=== PATIENT | female | born 1960 | race Caucasian/White ===

== ENCOUNTER → 2017-05-12 | Outpatient (CLI) | payer BC, OTHER | END | disposition home or self-care (01) | LOC: SHCH 12:29 | PROVIDERS: ATTEND Internal Medicine Cardiovascular Disease | DX: I31.3 Pericardial effusion (noninflammatory) (principal) | CPT/HCPCS: 93306 ==

== ENCOUNTER → 2022-09-29 | Outpatient (CLI) | payer OTHER | END | disposition home or self-care (01) | LOC: OIH 09:32 | PROVIDERS: ATTEND Internal Medicine Cardiovascular Disease | DX: Z13.6 Encounter for screening for cardiovascular disorders (principal) | CPT/HCPCS: 75571 ==

== ENCOUNTER 2024-06-25 17:42 | Emergency (ER) | payer BC, OTHER ==
[~2024-06-25] VITALS: Ht 175.3 cm; Wt 53.5 kg
[2024-06-25 18:01] LABS: BASOPHILS # (AUTO) 0.05 K/uL (0.00-0.20); BASOPHILS % (AUTO) 0.7 % (0.0-5.0); EOSINOPHILS # (AUTO) 0.07 K/uL (0.00-0.70); HEMATOCRIT 40.7 % (36-48); IMMATURE GRANULOCYTE ABSOLUTE 0.01 K/uL (0-1); LYMPHOCYTES # (AUTO) 2.5 K/uL (1.0-4.8); LYMPHOCYTES % (AUTO) 34.8 % (21.0-51.0); MEAN CORPUSCULAR HEMOGLOBIN 32.6 pg (27.0-33.0); MEAN CORPUSCULAR HGB CONC 33.7 g/dL (32.0-36.0); MEAN CORPUSCULAR VOLUME 96.9 fL (79-99); MONOCYTES # (AUTO) 0.6 K/uL (0.1-1.0); MONOCYTES % (AUTO) 8.5 % (3.0-13.0); NEUTROPHILS # (AUTO) 3.9 K/uL (1.8-7.7); NEUTROPHILS % (AUTO) 54.9 % (40.0-77.0); PLATELET COUNT (AUTO) 211 K/uL (130-400); RED CELL DISTRIBUTION WIDTH 12.4 % (11.0-15.5); WHITE BLOOD COUNT (AUTO) 7.1 K/uL (4.8-10.8)
[2024-06-25 18:16] LABS: POTASSIUM 3.8 mmol/L (3.5-5.1)
--- NOTE | 2024-06-25 18:16 | ERN ---
ED Note History of Present Illness Stated Complaint: CHEST PAIN Chief Complaint: Chest Pain Time Seen by MD: 20:02 Time Seen by Midlevel: 18:00 Dictation: Ms. Plascencia is a 63 year old female with history of high cholesterol, high triglycerides, and anxiety who presented to the emergency department this evening for evaluation of chest pain. She reports 1 hour prior to arrival she was watching television and she had sudden onset of substernal/epigastric pain radiating to her right jaw/ear and upper back. She reported the pain to be 10/10 and felt like a vice squeezing her heart. She denies having shortness of breath, diaphoresis, nausea, palpitations, or edema. She denies recent illness or history of similar symptoms. She does mention that she had been very active today working in her house; up and down from her attic. She ate a meal approximately 3 hours prior to onset of symptoms. Upon arrival to the ED she states the pain had decreased to 2-3/10. Addendum: ,Medications include Pravastatin, Escitalopram and she just started taking Zetia 2 weeks ago. Ms. Plascencia mentions that she has a cardiology appointment scheduled for next with Dr. Camara. HEART score=3 (low risk) Allergies: Coded Allergies: meperidine (Unverified Allergy, Unknown, 06/25/24) Uncoded Allergies: CEFALEXIN (Allergy, Unknown, 06/25/24) Past Medical History Past Medical History: Anxiety, High Cholesterol Surgical History: PSYCH History: no pertinent psych hx Family History: CAD (Extensive family history of cardiac disease.) Social History: Negative History: Not Applicable RN Note Reviewed/Agreed w/PFSH: Yes Review of System Dictation REVIEW OF SYSTEMS: CONSTITUTIONAL: Patient denies fevers, chills, sweats and weight changes. EYES: Patient denies any visual symptoms. EARS, NOSE, AND THROAT: No difficulties with hearing. No symptoms of rhinitis or sore throat. CARDIOVASCULAR: Patient denies palpitations, orthopnea and paroxysmal nocturnal dyspnea. Reported 10/10 substernal chest pain radiating to the right ear and to the back. RESPIRATORY: No dyspnea on exertion, no wheezing or cough. GI: No nausea, vomiting, diarrhea, constipation, abdominal pain, hematochezia or melena. : No urinary hesitancy or dribbling. No nocturia or urinary frequency. No abnormal urethral discharge. MUSCULOSKELETAL: No myalgias or arthralgias. NEUROLOGIC: No chronic headaches, no seizures. Patient denies numbness, tingling or weakness. PSYCHIATRIC: Patient denies problems with mood disturbance. No problems with anxiety. ENDOCRINE: No excessive urination or excessive thirst. DERMATOLOGIC: Patient denies any rashes or skin changes. Initial Vital Sign VS Vital Signs Date Time Temp Pulse Resp B/P (MAP) Pulse Ox O2 Delivery O2 Flow Rate FiO2 06/25/24 17:43 98.4 78 16 135/70 97 Room Air 06/25/24 17:44 0 21 Physical Exam Dictation Vital signs: Reviewed. Afebrile. Family at bedside Constitutional: No acute distress. Non-toxic appearing. Head/Face: Normocephalic, atraumatic. Eyes: Periorbital areas with no swelling, redness, or edema. Lids and lashes are normal. Conjunctival injection is absent. Sclera anicteric. Pupils equal, round, reactive to light. ENT: Pinnas intact and no signs of trauma or erythema. Ear canals clear and no discharge. TMs no erythema. No nasal discharge or bleeding noted. Oropharynx with no exudate, redness, swelling, masses, exudates, or evidence of obstruction. Uvula midline. Mucous membranes moist. Neck: Trachea midline, no masses palpated, and no cervical lymphadenopathy. No swelling. Supple, full range of motion. Chest/Axilla: No tenderness, no crepitus, no paradoxical movement, no retractions. Cardiovascular: Regular rate, regular rhythm, no murmur, no gallops. Symmetric pulses. No peripheral edema. Normotensive. Twelve lead EKG reflects a sinus rhythm without ST elevation or depression. Chest pain rated 2/10 Respiratory: Respirations even and unlabored. Lung sounds clear; no wheezes, rales or rhonchi. Room air SpO2 99% Gastrointestinal: Inspection is normal. No distention is appreciated. Bowel sounds are normal. No mass or organomegaly . There is slight tenderness upon palpation of upper quadrants. No rebound. No rigidity. No voluntary or i nvoluntary guarding. No Cabrales's sign. Neurological: Normal speech, gross motor function intact, gross sensory function intact. No focal weakness/Paresthesia. Musculoskeletal/Extremities: All extremities have full range of motion, no pain or tenderness on palpation. Symmetric pulses. Integumentary: Intact. Skin is normal color, warm and dry. Cap refill less than 2 seconds. Results (Laboratory/Radiology) Laboratory/Radiology Laboratory Tests Test 06/25/24 17:51 06/25/24 18:18 06/25/24 18:23 White Blood Count 7.1 K/uL (4.8-10.8) Red Blood Count 4.20 MIL/uL (4.00-5.50) Hemoglobin 13.7 g/dL (12.0-16.0) Hematocrit 40.7 % (36-48) Mean Corpuscular Volume 96.9 fL (79-99) Mean Corpuscular Hemoglobin 32.6 pg (27.0-33.0) Mean Corpuscular Hemoglobin Concent 33.7 g/dL (32.0-36.0) Red Cell Distribution Width 12.4 % (11.0-15.5) Platelet Count 211 K/uL (130-400) Mean Platelet Volume 10.7 fL (7.5-10.5) H Immature Granulocyte % (Auto) 0.1 % (0-1) Neutrophils (%) (Auto) 54.9 % (40.0-77.0) Lymphocytes (%) (Auto) 34.8 % (21.0-51.0) Monocytes (%) (Auto) 8.5 % (3.0-13.0) Eosinophils (%) (Auto) 1.0 % (0.0-8.0) Basophils (%) (Auto) 0.7 % (0.0-5.0) Neutrophils # (Auto) 3.9 K/uL (1.8-7.7) Lymphocytes # (Auto) 2.5 K/uL (1.0-4.8) Monocytes # (Auto) 0.6 K/uL (0.1-1.0) Eosinophils # (Auto) 0.07 K/uL (0.00-0.70) Basophils # (Auto) 0.05 K/uL (0.00-0.20) Absolute Immature Granulocyte (auto 0.01 K/uL (0-1) Nucleated Red Blood Cells 0.0 % (0.0-0.19) Sodium Level 143 mmol/L (136-145) Potassium Level 3.8 mmol/L (3.5-5.1) Chloride Level 107 mmol/L (101-111) Carbon Dioxide Level 30 mmol/L (21-32) Blood Urea Nitrogen 16 mg/dL (7-18) Creatinine 1.0 mg/dL (0.5-1.0) Glomerular Filtration Rate Calc 63 mL/min (>90) Random Glucose 123 mg/dL (70-105) H Total Calcium 9.3 mg/dL (8.5-10.1) Total Creatine Kinase 86 U/L (21-232) Troponin I High Sensitivity < 4 ng/L (4-50) L B-Type Natriuretic Peptide 98 pg/mL (0-100) Lipase 55 U/L (16-77) Urine Color LIGHT-YELLOW (YELLOW) Urine Appearance CLEAR (CLEAR) Urine pH 5.5 (5.0-8.0) Urine Specific [place] 1.012 (1.001-1.031) Urine Protein NEGATIVE mg/dL (NEGATIVE) Urine Glucose (UA) NEGATIVE mg/dL (NEGATIVE) Urine Ketones NEGATIVE mg/dL (NEGATIVE) Urine Occult Blood NEGATIVE (NEGATIVE) Urine Nitrate NEGATIVE (NEGATIVE) Urine Bilirubin NEGATIVE mg/dL (NEGATIVE) Urine Urobilinogen 0.2 mg/dL (0.2-1.0) Urine Leukocyte Esterase NEGATIVE Manisha/uL Urine RBC 0-1 /HPF (0-1) Urine WBC 0-1 /HPF (0-1) Urine Bacteria None /HPF (None Seen) Troponin I < 0.05 ng/mL (0.00-0.05) Labs Reviewed?: Yes ED Course ED Course Orders Procedure Category Date Status Time Vital Signs Per CPOE 06/25/24 Transmitted Routine 17:50 B-Type Natriuretic LAB 06/25/24 Complete Peptide 17:50 Chest 1vw RAD 06/25/24 Resulted 17:50 12 Lead Ekg Tracing- EKG 06/25/24 Logged Technical 17:50 Oxygen By Nc/Pulse Ox CPOE 06/25/24 Transmitted 17:50 Maintain Iv CPOE 06/25/24 Transmitted 17:50 Iv Insertion CPOE 06/25/24 Transmitted 17:50 Cardiac Monitoring CPOE 06/25/24 Transmitted 17:50 Pulse Oximetry With CPOE 06/25/24 Transmitted Vs And Prn 17:50 Cbc With Differential LAB 06/25/24 Complete 17:50 Activity: Br W/Brp CPOE 06/25/24 Transmitted With Assist 17:50 Creatine Kinase, Total LAB 06/25/24 Complete 17:50 Troponin I High LAB 06/25/24 Complete Sensitivity 17:50 Urinalysis Profile LAB 06/25/24 Complete 17:50 Troponin Poc Order LAB 06/25/24 Complete Only 17:50 Bedside Troponin-I LAB.ER 06/25/24 In Process (Poc) 17:50 Basic Metabolic Panel LAB 06/25/24 Complete 17:50 Lipase LAB 06/25/24 Complete 18:11 Aspirin 325mg Tab PHA 06/25/24 Complete (Aspirin 325mg Tab) 18:30 Us Abdominal Ruq\Ltd US 06/25/24 Taken 18:42 Current Medications Medications (Trade) Dose Ordered Sig/Bony Route PRN Reason Start Time Stop Time Status Last Admin Dose Admin Aspirin (Aspirin 325mg Tab) 325 mg ONCE ONCE PO 06/25/24 18:30 06/25/24 18:31 DC 06/25/24 18:18 Vital Signs Date Time Temp Pulse Resp B/P (MAP) Pulse Ox O2 Delivery O2 Flow Rate FiO2 06/25/24 19:33 98.1 56 18 121/70 98 Room Air* 0 21 06/25/24 19:02 60 13 121/70 99 Room Air* 0 21 06/25/24 17:44 98.2 59 13 121/64 99 Room Air* 0 21 06/25/24 17:43 98.4 78 16 135/70 97 Room Air Uneventful ED course. Vital signs remained stable; normotensive and afebrile with room air SpO2 97-99%. Twelve lead EKG reflects a sinus rhythm without ST elevation or depression. Chest x-ray unremarkable with clear lung kern heart is normal in size. Laboratory findings as noted below n0 elevation of WBCs. Glucose is 123 and lipase 55. UA is clear. Troponin negative x2. Right upper quadrant ultrasound unremarkable. While in the emergency department she received dose aspirin 325. Discussed findings with patient and her family. She will continue her current medication regimen and follow up with supervisor shrimp pond on as previously scheduled. HEART Score Response (Comments) Value History: Moderate suspicion (+1) 1 EKG: Normal 0 Age: 45-65yrs (+1) 1 Risk Factors: 1-2 risk factors (+1) 1 Initial Troponin: Normal limit (0) 0 HEART Score Risk: Low Risk for MACE (1-3) Total 3 Medical Decision Making MDM MDM: Differential diagnosis: ACS, cardiac arrhythmia, cholecystitis Rationale: Tests considered and ordered secondary to shared decision making include:CXR, EKG, LAB, US RUQ Previous outside records reviewed: Old ER visits. Risk of complication and/or morbidity or mortality of patient management: None Medications-Per medication reconciliation Need for hospitalization: Patient does not meet criteria for hospitalization. Need for emergency major/minor surgery: No There are no social concerns with this patient. Prescription drug management: N/A Prescriptions will include symptomatic care Patient's prior external medical records from other ER visits were reviewed by me as indicated. Prior testing and results from previous visits were reviewed. Prior tests were taken into account with medical decision making and resource utilization, independent historian/historians were used to obtain complete medical history. I independently interpreted the test that were performed, results were reviewed by me and considered findings on radiology if ordered. Medical management and examination interpretation discussions were had by me with other qualified healthcare professionals as indicated for the patient's care. DX & DISP Disposition: Discharge Departure Impression: Primary Impression: Chest pain Condition: Stable Additional Instructions: Keep a log of symptoms. Continue current medications. Keep your appointment with supervisor shrimp pond; Dr. Camara (take copies of your EKG, labs, and chest x-ray). Return to the emergency department for any worsening of symptoms or concerns. Referrals: EUNICE COLES MD (PCP) Time of Disposition: 20:15 GIANA CHACON NP Jun 25, 2024 18:16
[2024-06-25] MEDS: ASPIRIN 325MG TAB PO ONE (18:18)
[2024-06-25 18:27] LABS: APPEARANCE,URINE CLEAR (CLEAR); BILIRUBIN,URINE NEGATIVE (NEGATIVE); COLOR,URINE LIGHT-YELLOW (YELLOW); GLUCOSE, URINE (UA) NEGATIVE (NEGATIVE); KETONES,URINE NEGATIVE (NEGATIVE); LEUKOCYTE ESTERASE ,URINE NEGATIVE Leu/uL (NEGATIVE); NITRATE,URINE NEGATIVE (NEGATIVE); OCCULT BLOOD,URINE NEGATIVE (NEGATIVE); PH,URINE 5.5 (5.0-8.0); PROTEIN,URINE NEGATIVE (NEGATIVE); UROBILINOGEN,URINE 0.2 mg/dL (0.2-1.0)
[2024-06-25 18:27] LABS: B-TYPE NATRIURETIC PEPTIDE 98 pg/mL (0-100)
[2024-06-25 18:29] LABS: ADD UA MICROSCOPIC YES; MUCUS,URINE RARE LPF (None Seen); RBC,URINE 0-1 /HPF (0-1); WBC,URINE 0-1 /HPF (0-1)
--- NOTE | 2024-06-25 19:57 | HMCIMG ---
PORTABLE CHEST RADIOGRAPH INDICATION: CHEST PAIN COMPARISON: None FINDINGS: case monitor leads overlie the field of view. Heart size is normal. The pulmonary vascularity and fabio appear normal. No abnormal pulmonary parenchymal opacity or consolidation identified. No significant pleural effusion noted. No pneumothorax detected. IMPRESSION: No radiographic evidence for any acute cardiopulmonary process.
[2024-06-25 21:00] VITALS: BP 132/65; PULSE 65; RESP 18; TEMP 98.1; O2SAT 97
--- NOTE | 2024-06-25 21:06 | EKG ---
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
--- NOTE | 2024-06-26 08:56 | HMCIMG ---
ULTRASOUND ABDOMEN LIMITED INDICATION: Right upper abdominal pain COMPARISON: None FINDINGS: Examination is limited by extensive overlying bowel gas. The liver is normal in size and echogenicity; no focal lesion demonstrated. The common bile duct diameter measures 1.0 mm. No evidence for calculi, sludge or pericholecystic fluid. No sonographic Cabrales's sign elicited by the ultrasound tree feller operator. Wall thickness measures 2.0 mm. Visible portions of the pancreas appear normal. The right kidney measures 10.6 x 4.1 x 5.2 cm,and is normal in echogenicity, without evidence for hydronephrosis.No shadowing stones demonstrated. No free fluid demonstrated. IMPRESSION: Limitations as reported. No acute right upper abdominal abnormality noted.
== END 2024-06-25 21:15 | disposition home or self-care (01) ==
LOC: EDH 17:42
DX: R07.89 Other chest pain (principal); F41.9 Anxiety disorder, unspecified; E78.00 Pure hypercholesterolemia, unspecified; Z88.1 Allergy status to other antibiotic agents; Z88.5 Allergy status to narcotic agent
CPT/HCPCS: 36415; 71045; 76705; 80048; 81001; 82550; 83690; 83880; 84484; 85025; 93005; 99284

== ENCOUNTER → 2024-09-01 | Outpatient (CLI) | payer BC ==
[2024-09-01 12:22] LABS: CHOLESTEROL 231 mg/dL (<200); HDL CHOLESTEROL 92 mg/dL (35-85); LDL DIRECT 120 mg/dL (0-99); TRIGLYCERIDES 78 mg/dL (30-200)
== END | disposition home or self-care (01) ==
LOC: LAB 10:05
PROVIDERS: ATTEND Nurse Practitioner Acute Care
DX: E78.5 Hyperlipidemia, unspecified (principal)
CPT/HCPCS: 36415; 80061